=== PATIENT | female | born 1985 | race Caucasian/White ===

== ENCOUNTER 2024-06-03 15:05 | Emergency (ER) | payer OTHER ==
--- NOTE | 2024-06-03 15:44 | RAD REPORT ---
EXAMINATION: ONE VIEW CHEST XR CLINICAL INDICATION: Female, 38 years old.,CHEST PAIN TECHNIQUE: Frontal chest projection is submitted. Examination is limited by patient positioning and t echnique. COMPARISON: No prior exam. FINDINGS: The lungs are well inflated and clear. No pneumothorax or sizable effusion. Moderate cardiomegaly. M ediastinal contours are unremarkable. Left chest wall pacer in place IMPRESSION: No acute intrathoracic abnormalities. Moderate cardiomegaly.
[2024-06-03] MEDS ORDERED: ONDANSETRON 4 MG/2 ML VIAL ONE (16:08)
[2024-06-03] MEDS ORDERED: HYDROMORPHONE HCL 1 MG/ML INJ ONE ×2 (16:08→17:55)
[2024-06-03 16:17] LABS: Absolute Basophils 0.1 K/uL (0-0.5); Absolute Eosinophils 0.2 K/uL (0-0.5); Absolute Lymphocytes (CBC) 1.7 K/uL (0.7-4.9); Absolute Monocytes 0.4 K/uL (0.1-1.3); Absolute Neutrophil 4.4 K/uL (1.8-8.0); Basophils % 1.2 % (0-1.3); Eosinophils % 2.2 % (0-4.4); Hemoglobin 12.7 g/dL (12.0-15.0); Lymphocytes % 25.2 % (15.3-44.8); MCH 30.9 pg (27.0-35.0); MCHC 33.5 g/dL (32.0-36.0); MCV 92.3 fL (80-100); Monocytes % 6.5 % (3.3-12.3); Neutrophils % 64.9 % (41.7-73.7); Nucleated Red Blood Cells % 0.2 % (0-0); Platelets 261 thou/uL (152-406); RBC Red Blood Cell Count 4.12 M/uL (3.86-4.86); Red Cell Distribution Width 20.6 % (12.1-15.2)
[2024-06-03 16:19] LABS: Protime INR 1.07
[2024-06-03] MEDS ORDERED: DIPHENHYDRAMINE 50 MG/ML VIAL ONE ×2 (16:19→18:13)
[2024-06-03 16:32] LABS: ALT/SGPT 58 U/L (13-56); AST/SGOT 43 U/L (15-37); Albumin 3.7 g/dL (3.4-5.0); Albumin/Globulin Ratio 0.9 (1.1-1.8); Alkaline Phosphatase 110 U/L (45-117); Anion Gap 11.6 mEq/L (5.0-15.0); BUN Blood Urea Nitrogen 18 mg/dL (7-18); Bicarbonate 25 mEq/L (21-32); Bilirubin Total 0.5 mg/dL (0.2-1.0); Glomerular Filtration Rate 82 ml/min (=/>90); Glucose Level 121 mg/dL (74-106); NT PRO-BNP 499 pg/mL (<125); Potassium 3.6 mEq/L (3.5-5.1); Protein, Total 7.7 g/dL (6.4-8.2); Sodium Level 140 mEq/L (136-145); Troponin High Sensitivity 14.1 pg/mL (<58.9)
[2024-06-03 16:34] LABS: Bilirubin Direct < 0.2 mg/dL (0-0.2); Bilirubin Indirect, Calculated 0.3 mg/dL (0.2-0.8)
[2024-06-03 16:47] LABS: Anisocytosis 1+; Blood Morphology Comment NOTED (NOT SEEN); Platelet Estimate ADEQ; White Blood Cell Scan OK (OK)
[2024-06-03 16:48] LABS: Polychromasia SLIGHT
[2024-06-03] MEDS ORDERED: METHYLPREDNISOLONE 125 MG INJ ONE (17:55)
[2024-06-03] MEDS ORDERED: FAMOTIDINE 20 MG/2 ML VIAL IV ONE (17:56)
--- NOTE | 2024-06-03 19:39 | RAD REPORT ---
EXAM: CT Chest For Pe Angio TECHNIQUE: CT angiogram of the chest was performed following intravenous contrast administration, inc luding sagittal and coronal as well as maximum intensity projection reformats. One or more of the following dose reduction techniques were used: Automated exposure control, adjustment of the mA and k V according to patient size, and iterative reconstruction. Unless otherwise specified, incidental findings do not require dedicated imaging follow-up. INDICATION: [facility] MAIN CHEST PAIN Bed Name: 3 N COMPARISON: Chest radiograph of the same day. FINDINGS: LINES/TUBES: None. PULMONARY ARTERIES: Main pulmonary arteries are normal in caliber. No filling defects within the pul monary arteries to suggest pulmonary embolus. LUNGS AND AIRWAYS: The lungs and central airways are normal without focal abnormality, except for sub segmental dependent atelectatic changes. PLEURA: No effusion or pneumothorax. HEART AND MEDIASTINUM: The visualized thyroid gland is normal. No mediastinal, hilar, or axillary lym phadenopathy. Marked cardiomegaly, especially with left ventricular enlargement, with moderate pericardial effusion. Left chest wall Taser/AICD in place. SOFT TISSUES AND BONES: No acute osseous abnormality. No significant soft tissue finding. UPPER ABDOMEN: Unremarkable. IMPRESSION: No evidence of acute central pulmonary emboli. No suspicious pulmonary process. Marked cardiomegaly, with moderate-sized pericardial effusion.
--- NOTE | 2024-06-03 19:51 | EDPHYS ---
Physician Documentation [facility] Name: Thomas Hood Age: 38 yrs Sex: Female : 1985 Arrival Date: 06/03/2024 Time: 15:05 Bed 3 Private MD: ED Physician Michael Allen HPI: 06/03 15:20 This 38 yrs old Female presents to ER via Ambulatory with complaints of Chest Pain - cp Packemaker shocking. 15:20 The patient or guardian reports chest pain that is located primarily in the anterior cp chest wall. 15:20 Onset: this morning. The pain does not radiate. cp 15:20 Associated signs and symptoms: Pertinent positives: shortness of breath, Pertinent cp negatives: abdominal pain, diaphoresis, dizziness, lower extremity pain, lower extremity swelling. Patient reports pacemaker/defibrillator has shocked her on 3 separate occasions today. 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 Historical: - Allergies: 15:37 Latex, Natural Rubber; aa5 15:37 Iodine; aa5 15:37 Compazine; aa5 15:37 Reglan; aa5 15:37 PENICILLINS; aa5 15:37 Fentanyl; aa5 - Home Meds: 15:46 ventolin inhaler [Active]; amiodarone 200 mg Oral tablet daily [Active]; carvedilol aa5 6.25 mg oral tablet 2 times per day [Active]; Bumex Oral 1 mg twice a day [Active]; buspirone 10 mg Oral tablet 2 times per day [Active]; Xanax 0.5 mg Oral tablet TID PRN [Active]; atorvastatin 20 mg oral tablet every day at bedtime [Active]; potassium chloride 20meq oral Packet daily [Active]; midodrine oral PRN [Active]; Nitrostat SL every 5 mins x 3 times [Active]; - PMHx: 15:37 V-tach; Atrial fibrillation; Pericardial Effusion; Ejection Fraction 18%; Anemia; aa5 15:39 Hypercholesterolemia; aa5 - PSHx: 15:37 Pacemaker/Defibrillator; aa5 - Immunization history:: Adult Immunizations unknown. - Infectious Disease History:: Denies. - Social history:: Smoking status: Patient/guardian denies using tobacco. ROS: 15:20 Constitutional: Negative for body aches, chills, fever, poor PO intake, cp 15:20 Cardiovascular: Positive for chest pain, Negative for edema, cp 15:20 Respiratory: Negative for cough, shortness of breath, wheezing, 15:20 Eyes: Negative for injury, pain, redness, and discharge, cp 15:20 ENT: Negative for drainage from ear(s), ear pain, sore throat, difficulty swallowing, difficulty handling secretions, 15:20 Abdomen/GI: Negative for abdominal pain, vomiting, diarrhea, constipation, 15:20 Back: Negative for pain at rest, pain with movement, 15:20 Neuro: Negative for altered mental status, dizziness, headache, 15:20 All other systems are negative, Exam: 15:20 ECG was reviewed by the Attending Physician. cp 15:25 Constitutional: The patient appears in no acute distress, alert, awake, cp non-diaphoretic, non-toxic, well developed, well nourished, obese, uncomfortable, 15:25 Head/Face: Normocephalic, atraumatic. cp 15:25 Eyes: Periorbital structures: appear normal, Conjunctiva: normal, no exudate, no injection, Sclera: no appreciated abnormality, Lids and lashes: appear normal, bilaterally, 15:25 ENT: External ear(s): are unremarkable, Nose: is normal, Mouth: Lips: moist, Oral mucosa: pink and intact, moist, Posterior pharynx: Airway: no evidence of obstruction, patent, 15:25 Chest/axilla: Inspection: normal, 15:25 Cardiovascular: Rate: normal, Rhythm: regular, Edema: is not appreciated, JVD: is not appreciated, 15:25 Respiratory: the patient does not display signs of respiratory distress, Respirations: normal, no use of accessory muscles, no retractions, labored breathing, is not present, Breath sounds: are clear throughout, no decreased breath sounds, no stridor, no wheezing, 15:25 Abdomen/GI: Inspection: abdomen appears normal, Palpation: abdomen is soft and non-tender, in all quadrants, 15:25 Back: CVA tenderness, is absent, 15:25 Skin: consistent with psoriasis, and is diffusely located, 15:25 Neuro: Orientation: to person, place \T\ time. Mentation: is normal, Motor: moves all fours, strength is normal, Sensation: no obvious gross deficits, 19:22 ECG was reviewed by the Attending Physician. Vital Signs: 15:16 BP 143 / 87; Pulse 93; Resp 18 S; Temp 97.6(TE); Pulse Ox 99% on R/A; Weight 124.74 kg aa5 (R); Height 5 ft. 11 in. (R); 16:53 BP 125 / 69; Pulse 92; Resp 18; Pulse Ox 96% on R/A; ph 18:16 BP 135 / 61; Pulse 86; Resp 18; Pulse Ox 98% on R/A; ph 19:29 BP 128 / 77; Pulse 96; Resp 14; Temp 98.5(A); Pulse Ox 94% on R/A; Pain 8/10; mt4 19:59 BP 129 / 87; Pulse 99; Resp 19 S; mt4 15:16 Body Mass Index 38.35 (124.74 kg, 180.34 cm) aa5 19:29 Pain Scale: Adult mt4 Adriana Coma Score: 19:50 Eye Response: spontaneous(4). Motor Response: obeys commands(6). Verbal Response: mt4 oriented(5). Total: 15. MDM: 15:18 Medical Screening Exam initiated 19:55 Data reviewed: vital signs, nurses notes, lab test result(s), EKG, radiologic studies, cp CT scan, plain films, and as a result, I will discharge patient. 19:55 I considered the following discharge prescriptions or medication management in the emergency department Medications were administered in the Emergency Department. See MAR. Independent interpretation of the following test(s) in the Emergency Department EKG: See my EKG interpretation above. Care significantly affected by the following chronic conditions: Congestive Heart Failure, Obesity. Counseling: I had a detailed discussion with the patient and/or guardian regarding the historical points, exam findings, and any diagnostic results supporting the discharge/admit diagnosis, lab results, radiology results, to return to the emergency department if symptoms worsen or persist or if there are any questions or concerns that arise at home. Response to treatment: the patient's symptoms have markedly improved after treatment, and as a result, I will discharge patient. Special discussion: Based on the patient's history, exam, and Dx evaluation, there is no indication for emergent intervention or inpatient Tx. It is understood by the patient/guardian that if the Sx's persist or worsen they need to return immediately for re-evaluation. ED course: VSS. Discussed results of today's testing. Defibrillator report negative for delivering any impulses today. Chest pain improved. Initial and repeat troponin negative. Patient declines admission for continued monitoring and requests discharge to home. 06/03 15:18 Order name: Basic Metabolic Panel; Complete Time: 17:17 06/03 17:18 Interpretation: Normal except: GLUC 121; GFR 82. 06/03 15:18 Order name: CBC with Diff; Complete Time: 17:17 06/03 15:18 Order name: LFT's; Complete Time: 17:17 06/03 15:18 Order name: Magnesium; Complete Time: 17:17 06/03 15:18 Order name: NT PRO-BNP; Complete Time: 17:17 06/03 15:18 Order name: PT-INR; Complete Time: 17:17 06/03 15:18 Order name: Troponin HS; Complete Time: 17:17 06/03 17:19 Interpretation: Reviewed. 06/03 16:48 Order name: CBC Smear Scan; Complete Time: 17:17 EDMS 06/03 18:30 Order name: Troponin High Sensitivity; Complete Time: 19:41 aa5 06/03 19:43 Interpretation: Reviewed. 06/03 15:18 Order name: XRAY Chest (1 view); Complete Time: 17:17 06/03 17:36 Order name: CT Chest For PE Angio; Complete Time: 19:41 06/03 15:18 Order name: EKG; Complete Time: 15:18 06/03 15:18 Order name: Cardiac monitoring; Complete Time: 15:29 06/03 15:18 Order name: EKG - Nurse/Tech; Complete Time: 15:29 06/03 15:18 Order name: IV Saline Lock; Complete Time: 15:29 06/03 15:18 Order name: Labs collected and sent; Complete Time: 15:29 06/03 15:18 Order name: O2 Per Protocol; Complete Time: 15:29 06/03 15:18 Order name: O2 Sat Monitoring; Complete Time: 15:29 06/03 15:28 Order name: Interrogate Pacemaker; Complete Time: 15:29 06/03 18:31 Order name: EKG - Nurse/Tech; Complete Time: 19:52 aa EC:20 Rate is 90 beats/min. Rhythm is regular. WI interval is prolonged at 218 msec. QRS cp interval is prolonged at 162 msec. QT interval is normal. T waves are Inverted in leads I, aVL, V5, V6. Interpreted by me. Reviewed by me. 19:22 Rate is 92 beats/min. Rhythm is regular. WI interval is prolonged at 238 msec. QRS cp interval is prolonged at 158 msec. QT interval is normal. T waves are Inverted in leads I, II, V5, V6. Interpreted by me. Reviewed by me. Administered Medications: 16:16 Drug: Ondansetron IVP 4 mg IVP once; over 2 minutes Route: IVP; Site: right antecubital;ph 19:59 Follow up: Response: No adverse reaction mt4 16:17 Drug: HYDROmorphone IVP 1 mg IVP once Route: IVP; Site: right antecubital; ph 19:59 Follow up: Response: No adverse reaction mt4 16:28 Drug: diphenhydrAMINE IVP 50 mg IVP once Route: IVP; Site: right antecubital; ph 19:59 Follow up: Response: No adverse reaction mt4 18:17 Drug: Famotidine IVP 20 mg IVP once; dilute with 10 mL 0.9% NaCl; give over 2 minutes ph Route: IVP; Site: right antecubital; 19:58 Follow up: Response: No adverse reaction mt4 18:17 Drug: MethylPrednisoLONE IVP 125 mg IVP once Route: IVP; Site: right antecubital; ph 19:58 Follow up: Response: No adverse reaction mt4 18:17 Drug: HYDROmorphone IVP 1 mg IVP once Route: IVP; Site: right antecubital; ph 19:58 Drug: Hydrocodone-Acetaminophen PO (7.5 mg-325 mg) 1 tabs PO once; RASS on ADMIN: mt4 Combtv4, Very Agttd3, Agttd2, Rstlss1, AlertClm0, Drwsy-1, Lt Sdtn-2, Mod Sdtn-3, Dp Sdtn-4, UnArsble-5 Route: PO; 20:04 Follow up: Response: No adverse reaction mt4 Disposition Summary: 06/03/24 19:51 Discharge Ordered Notes: Location: Home cp Problem: new cp Symptoms: have improved cp Condition: Stable cp Diagnosis - Chest pain, unspecified cp Followup: cp - With: Private Physician - When: 1 week - Reason: once returned home Discharge Instructions: - Discharge Summary Sheet cp - Nonspecific Chest Pain, Adult cp - Aspirin and Your Heart cp Forms: - Medication Reconciliation Form cp - Antibiotic Education cp - Prescription Opioid Use cp - Patient Portal Instructions cp - Leadership Thank You Letter cp Signatures: Dispatcher [employer] EDMS Marly Remy Audri RN RN aa5 Devi Sharpe RN RN ph Jose Antonio Pierre, NATHANAEL PA cp Vasyl Park RN RN mt4 Corrections: (The following items were deleted from the chart) 18:31 18:31 Troponin High Sensitivity+C.LAB.BRZ ordered. EDMS EDMS
--- NOTE | 2024-06-03 19:51 | ER ---
Nurse's Notes [facility] Name: Thomas Hood Age: 38 yrs Sex: Female : 1985 Arrival Date: 06/03/2024 Time: 15:05 Bed 3 Private MD: Diagnosis: Chest pain, unspecified Presentation: 06/03 15:16 Chief complaint: Chief complaint: Patient states: chest pain since this morning, pt aa5 reports was shocked 3 times in the last 90 minutes by implanted defibrillator. 15:16 Onset of symptoms was June 03, 2024. aa5 15:16 Acuity: LEATHA 2 aa5 15:16 Method Of Arrival: Ambulatory aa5 15:16 Coronavirus screen: At this time, the client does not indicate any symptoms associated aa5 with coronavirus-19. Ebola Screen: Patient denies travel to an Ebola-affected area in the 21 days before illness onset. Initial Sepsis Screen: Does the patient meet any 2 criteria? HR > 90 bpm. Does the patient have a suspected source of infection? No. Patient's initial sepsis screen is negative. Risk Assessment: Do you want to hurt yourself or someone else? Patient reports no desire to harm self or others. 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 Historical: - Allergies: 15:37 Latex, Natural Rubber; aa5 15:37 Iodine; aa5 15:37 Compazine; aa5 15:37 Reglan; aa5 15:37 PENICILLINS; aa5 15:37 Fentanyl; aa5 - Home Meds: 15:46 ventolin inhaler [Active]; amiodarone 200 mg Oral tablet daily [Active]; carvedilol aa5 6.25 mg oral tablet 2 times per day [Active]; Bumex Oral 1 mg twice a day [Active]; buspirone 10 mg Oral tablet 2 times per day [Active]; Xanax 0.5 mg Oral tablet TID PRN [Active]; atorvastatin 20 mg oral tablet every day at bedtime [Active]; potassium chloride 20meq oral Packet daily [Active]; midodrine oral PRN [Active]; Nitrostat SL every 5 mins x 3 times [Active]; - PMHx: 15:37 V-tach; Atrial fibrillation; Pericardial Effusion; Ejection Fraction 18%; Anemia; aa5 15:39 Hypercholesterolemia; aa5 - PSHx: 15:37 Pacemaker/Defibrillator; aa5 - Immunization history:: Adult Immunizations unknown. - Infectious Disease History:: Denies. - Social history:: Smoking status: Patient/guardian denies using tobacco. Screenin:[facility] ED Fall Risk Assessment (Adult) History of falling in the last 3 months, ph including since admission No falls in past 3 months (0 pts) Confusion or Disorientation No (0 pts) Intoxicated or Sedated No (0 pts) Impaired Gait No (0 pts) Mobility Assist Device Used No (0 pt) Altered Elimination No (0 pt) Score/Fall Risk Level 0 - 2 = Low Risk Oriented to surroundings, Maintained a safe environment, Hourly rounding (assess needs \T\ fall precautionary measures) done. Abuse screen: Denies threats or abuse. Denies injuries from another. Nutritional screening: No deficits noted. Tuberculosis screening: No symptoms or risk factors identified. Assessment: 15:29 Reassessment: Pacemaker interrogated per providers order, interrogation was sent to [place] [employer]. . 16:00 General: Appears in no apparent distress. Behavior is calm, cooperative. Pain: ph Complains of pain in chest Pain does not radiate. Pain began this morning. Neuro: Level of Consciousness is awake, alert, obeys commands, Oriented to person, place, time, situation. Cardiovascular: Reports chest pain. Respiratory: Airway is patent Respiratory effort is even, unlabored, Respiratory pattern is regular, symmetrical. Derm: Skin is pink, warm \T\ dry. Rash noted that is large plaques of psoriasis noted to bilateral arms and legs. Musculoskeletal: Circulation, motion, and sensation intact. Range of motion: intact in all extremities. 18:16 Reassessment: Patient appears in no apparent distress at this time. Patient and/or ph family updated on plan of care and expected duration. Pain level reassessed. Patient is alert, oriented x 3, equal unlabored respirations, skin warm/dry/pink. 19:50 General: Appears in no apparent distress. comfortable, Behavior is calm, cooperative, mt4 appropriate for age. Pain: Complains of pain in chest Pain currently is 8 out of 10 on a pain scale. Neuro: Level of Consciousness is awake, alert, obeys commands, Oriented to person, place, time, situation, Gait is steady. 19:50 Cardiovascular: Reports chest pain. Respiratory: Airway is patent Respiratory effort is mt4 even, unlabored, Respiratory pattern is regular, symmetrical. Vital Signs: 15:16 BP 143 / 87; Pulse 93; Resp 18 S; Temp 97.6(TE); Pulse Ox 99% on R/A; Weight 124.74 kg aa5 (R); Height 5 ft. 11 in. (R); 16:53 BP 125 / 69; Pulse 92; Resp 18; Pulse Ox 96% on R/A; ph 18:16 BP 135 / 61; Pulse 86; Resp 18; Pulse Ox 98% on R/A; ph 19:29 BP 128 / 77; Pulse 96; Resp 14; Temp 98.5(A); Pulse Ox 94% on R/A; Pain 8/10; mt4 19:59 BP 129 / 87; Pulse 99; Resp 19 S; mt4 15:16 Body Mass Index 38.35 (124.74 kg, 180.34 cm) aa5 19:29 Pain Scale: Adult mt4 Vitals: 16:53 Cardiac Rhythm Assessment Sinus rhythm. ph Cowley Coma Score: 19:50 Eye Response: spontaneous(4). Motor Response: obeys commands(6). Verbal Response: mt4 oriented(5). Total: 15. ED Course: 15:06 Patient arrived in ED. ra3 15:16 Arm band placed on. aa5 15:17 Jose Antonio Pierre PA is PHCP. cp 15:17 Michael Allen MD is Attending Physician. cp 15:20 Devi Sharpe, CHAI is Primary Nurse. ph 15:33 Triage completed. aa5 15:33 XRAY Chest (1 view) In Process Unspecified. EDMS 16:05 Initial lab(s) drawn, by ED staff, sent to lab. Inserted saline lock: 22 gauge in right ph antecubital area, using aseptic technique. Blood collected. Flushed with 10 mL NS. 16:54 Patient has correct armband on for positive identification. Bed in low position. Call ph light in reach. Side rails up X 1. Client placed on continuous cardiac and pulse oximetry monitoring. NIBP monitoring applied. monitoring and evaluation advisor on. Door closed. Noise minimized. 16:54 Patient maintains SpO2 saturation greater than 95% on room air. ph 18:17 No provider procedures requiring assistance completed. ph 18:46 CT Chest For PE Angio In Process Unspecified. EDMS 19:50 Provided Education on: REPEAT TROP AND ekg. mt4 20:06 IV discontinued, intact, bleeding controlled, No redness/swelling at site. Pressure mt4 dressing applied. Patient maintains SpO2 saturation greater than 95% on room air. Administered Medications: 16:16 Drug: Ondansetron IVP 4 mg IVP once; over 2 minutes Route: IVP; Site: right antecubital;ph 19:59 Follow up: Response: No adverse reaction mt4 16:17 Drug: HYDROmorphone IVP 1 mg IVP once Route: IVP; Site: right antecubital; ph 19:59 Follow up: Response: No adverse reaction mt4 16:28 Drug: diphenhydrAMINE IVP 50 mg IVP once Route: IVP; Site: right antecubital; ph 19:59 Follow up: Response: No adverse reaction mt4 18:17 Drug: Famotidine IVP 20 mg IVP once; dilute with 10 mL 0.9% NaCl; give over 2 minutes ph Route: IVP; Site: right antecubital; 19:58 Follow up: Response: No adverse reaction mt4 18:17 Drug: MethylPrednisoLONE IVP 125 mg IVP once Route: IVP; Site: right antecubital; ph 19:58 Follow up: Response: No adverse reaction mt4 18:17 Drug: HYDROmorphone IVP 1 mg IVP once Route: IVP; Site: right antecubital; ph 19:58 Drug: Hydrocodone-Acetaminophen PO (7.5 mg-325 mg) 1 tabs PO once; RASS on ADMIN: mt4 Combtv4, Very Agttd3, Agttd2, Rstlss1, AlertClm0, Drwsy-1, Lt Sdtn-2, Mod Sdtn-3, Dp Sdtn-4, UnArsble-5 Route: PO; 20:04 Follow up: Response: No adverse reaction mt4 Medication: 16:54 VIS not applicable for this client. ph Outcome: 19:51 Discharge ordered by . cp 20:06 Discharged to home ambulatory, with family, mt4 20:06 Condition: stable 20:06 Discharge instructions given to Instructed on Demonstrated understanding of instructions, follow-up care, medications, 20:09 Patient left the ED. mt4 Signatures: Dispatcher [employer] Marialuisa Sheehan RN RN aa5 Devi Sharpe RN RN ph Jose Antonio Pierre PA PA cp Alva, Ruby ra3 Vasyl Park RN RN mt4 Corrections: (The following items were deleted from the chart) 15:33 15:16 Chief complaint: aa5 aa5 16:28 16:28 HYDROmorphone IVP 1 mg IVP in right antecubital ph ph
[2024-06-03] MEDS ORDERED: HYDROCODONE/APAP 7.5/325 MG TAB ONE (19:54)
[2024-06-04 01:58] VITALS: TEMP 98.5; O2SAT 94
[2024-06-04 01:59] VITALS: BP 129/87
--- NOTE | 2024-06-05 11:37 | EKG ---
Test Date: 2024-06-03 Test Time: 19:18:04 Cyber Forensics Analyst: AYAN MEASUREMENT RESULTS: Intervals: Rate: 92 TX: 238 QRSD: 158 QT: 430 QTc: 531 [place]: P: 44 TX: 238 QRS: -17 T: 154 INTERPRETIVE STATEMENTS: Sinus rhythm with 1st degree AV block Left bundle branch block Abnormal ECG Compared to ECG 06/03/2024 15:15:52 No significant changes Electronically Signed On 06-05-24 11:32:39 MAGAZINE PUBLISHER by Samuel Toscano
--- NOTE | 2024-06-05 11:38 | EKG ---
Test Date: 2024-06-03 Test Time: 15:15:52 Fruit Coordinator: STEPHANIE MEASUREMENT RESULTS: Intervals: Rate: 90 DE: 218 QRSD: 162 QT: 436 QTc: 533 [place]: P: 55 DE: 218 QRS: -18 T: 92 INTERPRETIVE STATEMENTS: Sinus rhythm with 1st degree AV block Left bundle branch block Abnormal ECG No previous ECG available for comparison Electronically Signed On 06-05-24 11:34:15 HYDRAULIC ASSEMBLER by Samuel Toscano
== END 2024-06-03 20:09 | disposition home or self-care (01) ==
LOC: ER 15:05
DX: R07.9 Chest pain, unspecified (principal); Z88.0 Allergy status to penicillin; Z88.8 Allergy status to other drugs, medicaments and biological substances; Z91.040 Latex allergy status
CPT/HCPCS: 93005 ×2; 85025; 80048; 36415; 83735; 85610; 80076; 84484 ×2; 83880; 71275; 71045; 96375; 96374; 99285; Q9967; J1200 ×2; J1171 ×2; J2919; J2405